=== PATIENT | female | born 1970 | race Caucasian/White ===

== ENCOUNTER 2017-12-04 14:01 | Outpatient (CLI) | payer OTHER ==
--- NOTE | 2017-12-04 18:05 | RAD ---
LEFT FOOT THREE VIEWS: 12/04/17 Comparison is made with the right foot. A moderate sized calcaneal spur is present on this side as well. No fracture or periosteal reaction w as seen elsewhere. IMPRESSION: Calcaneal spur but no acute finding. POS: HOME
--- NOTE | 2017-12-04 18:09 | RAD ---
RIGHT FOOT THREE VIEWS: 12/04/17 A calcaneal spur is present. No soft tissue calcifications were seen. There is a prominent os cuboida le. No bony fractures or periosteal reaction was seen. IMPRESSION: Calcaneal spur. POS: HOME
== END 2017-12-04 14:02 | disposition home or self-care (01) ==
LOC: BURRAD 14:01
PROVIDERS: ATTEND Family Medicine
DX: M72.2 Plantar fascial fibromatosis (principal); M77.32 Calcaneal spur, left foot; M77.31 Calcaneal spur, right foot

== ENCOUNTER 2020-03-04 09:37 | Emergency (ER) | payer SELFPAY ==
[2020-03-04] MEDS ORDERED: Boostrix 0.5 ML (Tdap) VIAL ONE (10:04)
[2020-03-04] MEDS ORDERED: Lidocaine 1% w/Epinephrine 1:100K 20 ML VIAL ONE (10:04)
[2020-03-04] MEDS ORDERED: Bacitracin 1 PK ONE (10:30)
== END 2020-03-04 10:35 | disposition home or self-care (01) ==
LOC: BURERS 09:37
DX: S01.01XA Laceration without foreign body of scalp, initial encounter (principal); F17.210 Nicotine dependence, cigarettes, uncomplicated; Z23 Encounter for immunization; X58.XXXA Exposure to other specified factors, initial encounter
CPT/HCPCS: 12001; 90471; 90715

== ENCOUNTER 2023-09-25 20:21 | Emergency (ER) | payer SELFPAY ==
[2023-09-25] MEDS ORDERED: Lorazepam 1 MG TAB ONE (21:39)
[2023-09-25] MEDS ORDERED: Aspirin Chewable 81 MG TAB ONE (21:40)
[2023-09-25 21:48] LABS: #Eosinphils 0.1 thou/uL (0.0-0.7); #Lymphocytes 1.4 thou/uL (1.20-3.40); #Monocytes 0.5 thou/uL (0.11-0.59); #Neutrophils 3.2 thou/uL (1.40-6.50); %Basophils 0.8 % (0.0-1.0); %Eosinophils 2.1 % (0.0-10.0); %Lymphocytes 26.8 % (21.0-51.0); %Monocytes 9.2 % (0.0-10.0); %Neutrophils 61.2 % (42.0-75.0); Hematocrit 38.2 % (36.0-47.0); Hemoglobin 12.7 g/dL (12.0-16.0); Mean Corpuscular HGB CONC 33.2 g/dL (32.0-36.0); Mean Corpuscular Hemoglobin 28.7 pg (27.0-31.0); Mean Corpuscular Volume 86.5 fl (78.0-98.0); Mean Platelet Volume 7.2 fL (7.4-10.4); Platelet Count 192 10x3/uL (130-400); RBC Distribution Width 12.4 % (11.5-14.5); Red Blood Cell (RBC) Count 4.42 mill/uL (4.20-5.40); White Blood Cell (WBC) Count 5.2 10x3/uL (4.8-10.8)
[2023-09-25 22:05] LABS: ALT (SGPT) 14 U/L (8-55); AST (SGOT) 15 U/L (5-34); Albumin 3.2 g/dL (3.5-5.0); Alkaline Phosphatase 96 U/L (40-110); Anion Gap 12 mmol/L (10-20); BUN (Urea Nitrogen) 13 mg/dL (9.8-20.1); Bilirubin, Total 0.2 mg/dL (0.2-1.2); Calc. Creatinine Clearance 0 mL/min (70-130); Calcium 8.2 mg/dL (7.8-10.44); Carbon Dioxide 24 mmol/L (22-29); Chloride 108 mmol/L (98-107); Estimated GFR 81; Globulin 2.4 g/dL (2.4-3.5); Glucose 100 mg/dL (70-105); Potassium 3.2 mmol/L (3.5-5.1); Protein, Total 5.6 g/dL (6.0-8.3); Sodium 141 mmol/L (136-145)
[2023-09-25 22:06] LABS: Troponin I Less than 0.010 ng/mL (< 0.028)
== END 2023-09-25 23:30 | disposition home or self-care (01) ==
LOC: BURERS 20:21
DX: F41.8 Other specified anxiety disorders (principal); F17.210 Nicotine dependence, cigarettes, uncomplicated
CPT/HCPCS: 36415; 71045; 80053; 84484; 85025; 93005

== ENCOUNTER 2023-10-14 17:40 | Emergency (ER) | payer SELFPAY ==
[2023-10-14 18:35] LABS: Influenza A by NAA Not Detected (NotDetected); Influenza B by NAA Not Detected (NotDetected); SARS-CoV-2 NAA Rapid Test Not Detected (NotDetected)
== END 2023-10-14 19:20 | disposition home or self-care (01) ==
LOC: BURERS 17:40
DX: B34.9 Viral infection, unspecified (principal); J02.9 Acute pharyngitis, unspecified; F17.210 Nicotine dependence, cigarettes, uncomplicated
CPT/HCPCS: 87081; 87430; 99283

== ENCOUNTER 2024-01-10 16:17 | Emergency (ER) | payer SELFPAY | END 2024-01-10 17:59 | disposition home or self-care (01) | LOC: BURERS 16:17 | DX: J02.9 Acute pharyngitis, unspecified (principal); M43.6 Torticollis; F17.210 Nicotine dependence, cigarettes, uncomplicated | CPT/HCPCS: 71046 ==

== ENCOUNTER 2024-11-26 08:29 | Emergency (ER) | payer SELFPAY ==
[2024-11-26 09:06] LABS: #Basophils 0.0 thou/uL (0.0-0.2); #Eosinophils 0.2 thou/uL (0.0-0.7); #Lymphocytes 1.4 thou/uL (1.20-3.40); #Monocytes 0.3 thou/uL (0.11-0.59); #Neutrophils 4.5 thou/uL (1.40-6.50); %Basophils 0.4 % (0.0-1.0); %Eosinophils 2.6 % (0.0-10.0); %Lymphocytes 21.7 % (21.0-51.0); %Monocytes 5.3 % (0.0-10.0); %Neutrophils 70.0 % (42.0-75.0); Hematocrit 39.3 % (36.0-47.0); Hemoglobin 13.4 g/dL (12.0-16.0); Mean Corpuscular Hemoglobin 28.6 pg (27.0-31.0); Mean Corpuscular Volume 83.8 fl (78.0-98.0); Platelet Count 231 10x3/uL (130-400); Red Blood Cell (RBC) Count 4.69 mill/uL (4.20-5.40); White Blood Cell (WBC) Count 6.4 10x3/uL (4.8-10.8)
[2024-11-26 09:20] LABS: ALT (SGPT) 12 U/L (Less than 34); AST (SGOT) 18 U/L (11-34); Albumin 3.7 g/dL (3.1-4.5); Alkaline Phosphatase 111 U/L (40-110); Anion Gap 13 mmol/L (10-20); BUN (Urea Nitrogen) 15 mg/dL (9.8-20.1); Bilirubin, Total 0.4 mg/dL (0.3-1.2); Calc. Creatinine Clearance 0 mL/min (70-130); Calcium 8.5 mg/dL (7.8-10.44); Carbon Dioxide 25 mmol/L (22-29); Chloride 108 mmol/L (98-107); Globulin 2.5 g/dL (2.4-3.5); Glucose 110 mg/dL (70-105); Potassium 3.3 mmol/L (3.5-5.1); Sodium 143 mmol/L (136-145)
[2024-11-26] MEDS ORDERED: Metoclopramide HCl 10 MG (2 mL) VIAL ONE (09:24)
[2024-11-26] MEDS ORDERED: Ketorolac Tromethamine 30 MG (1 mL) VIAL ONE (09:24)
[2024-11-26 09:53] LABS: Glucose, Urine (Dipstick) Negative (Negative); Leukocyte Small (Negative); Protein, Urine (Dipstick) Negative (Neg-Trace); Specific Gravity, Urine 1.015 (1.005-1.030)
[2024-11-26 09:59] LABS: CAUTI Indications for Culture Dysuria,urgency,freq; RBC/HPF 0-3 HPF (0-3)
[2024-11-26 10:00] LABS: Bacteria/HPF Rare-Few HPF (None Seen)
[2024-11-26 10:01] LABS: Urine Culture Reflex No No
== END 2024-11-26 10:21 | disposition home or self-care (01) ==
LOC: BURERS 08:29
DX: R51.9 Headache, unspecified (principal); R11.2 Nausea with vomiting, unspecified; R53.1 Weakness; F17.210 Nicotine dependence, cigarettes, uncomplicated
CPT/HCPCS: 80053; 81001; 83605; 85025; 87086; 96361; 96374; 96375; J1885; J2765